=== PATIENT | male | born 1975 | race Caucasian/White ===

== ENCOUNTER 2024-02-14 12:49 | Inpatient (IN) | payer OTHER ==
[2024-02-14 13:47] VITALS: BMI 25.0
[2024-02-14] MEDS ORDERED: DICYCLOMINE HCL 10 MG CAPSULE PO PRN (14:40)
[2024-02-14] MEDS ORDERED: ACETAMINOPHEN 325 MG TABLET (FP) PO PRN (14:40)
[2024-02-14] MEDS ORDERED: guaiFENesin 600 MG TABLET.ER (FP) PO PRN (14:40)
[2024-02-14] MEDS ORDERED: METHOCARBAMOL 500 MG TABLET PO PRN (14:40)
[2024-02-14] MEDS ORDERED: BENZONATATE 200 MG CAPSULE PO PRN (14:40)
[2024-02-14] MEDS ORDERED: BISMUTH SUBSALICYLATE 524 MG/30 ML PO PRN (14:40)
[2024-02-14] MEDS ORDERED: LOPERAMIDE HCL 2 MG CAPSULE PO PRN (14:40)
[2024-02-14] MEDS ORDERED: IBUPROFEN 400 MG TABLET (FP) PO PRN (14:40)
[2024-02-14] MEDS ORDERED: POLYETHYLENE GLYCOL (HEALTHYLAX) 3350 17 GM PACKET PO PRN (14:40)
[2024-02-14] MEDS ORDERED: BENZOCAINE/MENTHOL (CHLORASEPTIC ) LOZENGE MM PRN (14:40)
[2024-02-14] MEDS ORDERED: P-EPHED 60MG/TRIPROLIDI 2.5MG TABLET PO PRN (14:40)
[2024-02-14] MEDS ORDERED: IBUPROFEN 600 MG TABLET (FP) PO PRN (14:40)
[2024-02-14] MEDS ORDERED: hydrOXYzine PAMOATE 25 MG CAPSULE (FP) PO PRN (14:40)
[2024-02-14] MEDS ORDERED: MAGNESIUM HYDROX 2400MG/30ML ORAL SUSPENSION 30 ML CUP PO PRN (14:40)
[2024-02-14] MEDS ORDERED: MAG HYDROX/AL HYDROX/SIMETH 30 ML UNIT-DOSE CUP PO PRN (14:40)
[2024-02-14] MEDS ORDERED: ONDANSETRON *ODT* 4 MG TABLET SL PRN (14:40)
[2024-02-14] MEDS: PNEUMOC 20-VAL CONJ-DIP CRM/PF 0.5 ML SYRINGE IM ONE (18:20)
[2024-02-14] MEDS: THIAMINE 100 MG TABLET PO SCH (21:57)
[2024-02-14] MEDS: QUEtiapine FUMARATE 300 MG TABLET PO SCH (21:59)
[2024-02-14] MEDS: MELATONIN 5 MG TABLETS PO SCH (22:00)
[2024-02-15] MEDS: PRENATAL VITAMINS W/ FOLIC ACID TABLET (FP) PO SCH (09:51)
[2024-02-15] MEDS: QUEtiapine FUMARATE 100 MG TABLET (FP) PO SCH (09:51)
[2024-02-15] MEDS: PNEUMOC 20-VAL CONJ-DIP CRM/PF 0.5 ML SYRINGE IM ONE (12:12)
[2024-02-15 13:24] LABS: POTASSIUM 3.7 mmol/L (3.5-5.1)
[2024-02-15 13:34] LABS: HEMATOCRIT 40.6 % (35.4-49); HEMOGLOBIN 14.3 GM/dL (11.7-16.9); MCH 33.1 pg (25.7-33.7); MCHC 35.2 g/dl (32.0-35.9); MEAN CELL VOLUME 94.1 fl (80-96); MEAN PLT VOLUME 7.4 fl (7.5-11.1); PLATELET COUNT 225 10^3/uL (134-434); RBC 4.31 M/mm3 (4.00-5.60); RDW 13.4 % (11.9-15.9); WHITE BLOOD COUNT 3.8 K/mm3 (4.0-10.0)
[2024-02-15 13:35] LABS: CALCIUM 9.2 mg/dL (8.5-10.1)
[2024-02-15 13:36] LABS: ALBUMIN 3.3 g/dl (3.4-5.0); BLOOD UREA NITROGEN 14.6 mg/dL (7-18)
[2024-02-15 13:39] LABS: CREATININE 0.9 mg/dL (0.55-1.3)
[2024-02-15 13:41] LABS: BILIRUBIN,TOTAL 0.8 mg/dL (0.2-1); TOT PROT 6.2 g/dl (6.4-8.2)
[2024-02-15 14:23] LABS: HIV INTERPRETATION NEGATIVE (NEGATIVE)
[2024-02-15] MEDS ORDERED: DIVALPROEX SODIUM 250 MG TABLET E.C. PO SCH (22:00)
[2024-02-15] MEDS: DIVALPROEX NA *ER* EXTEND REL 250 MG TABLET.SA PO SCH (22:48)
[2024-02-15] MEDS: QUEtiapine FUMARATE 400 MG TABLET PO SCH (22:49)
[2024-02-16] MEDS: QUEtiapine FUMARATE 200 MG TABLET PO SCH (09:58)
[2024-02-17 09:21] VITALS: BP 144/94; PULSE 96; RESP 18; TEMP 98.4
== END 2024-02-17 12:29 | disposition home or self-care (01) | DRG 775 ==
LOC: YASAS 12:49 → Y6N 16:40
PROVIDERS: ADMIT Allergy & Immunology; ATTEND Surgery
PROC: HZ2ZZZZ Detoxification Services for Substance Abuse Treatment (ICD-10-PCS; principal; 2024-02-14)
DX: F10.20 Alcohol dependence, uncomplicated (principal); F12.20 Cannabis dependence, uncomplicated; F31.9 Bipolar disorder, unspecified
CPT/HCPCS: 36415; 80053; 80164; 80305; 80307; 85027; 86780; 87389; 90677; 93005; 93010; G0009